=== PATIENT | female | born 1945 | race Caucasian/White ===

== ENCOUNTER → 2023-08-20 | Outpatient (CLI) | payer MEDICARE, SELFPAY ==
--- NOTE | 2023-08-20 15:41 | MRI_ITS ---
INDICATION: treated bone metastasis, eval for disease -- please compare to prior EXAMINATION: MRI - MR Spine Lumbar WO/W Contrast TECHNIQUE: Multiplanar and multisequence MR images of the lumbar spine. IV Contrast Dosage and Agent: None. COMPARISON: None. FINDINGS: VERTEBRAE: Scattered intraosseous hemangiomas are seen within the lumbar spine. However the L1 vertebral body demonstrates a lesion 1.36 cm AP with persistent high signal on fat saturation imaging and which demonstrates contrast enhancement. This could represent atypical intraosseous hemangioma or metabolically active lesion. Correlation advised. T10 demonstrates a moderate acute biconcave compression fracture. This demonstrates moderate marrow edema and contrast enhancement consistent with pathologic fracture. VERTEBRAL ALIGNMENT: No spondylolisthesis. There is preservation of the normal lumbar lordosis. CORD: Normal position and signal intensity of the conus medullaris. L1/L2: Normal disc height and morphology. Normal spinal canal, lateral recesses and neuroforamina. L2/L3: Mild disc bulging. L3/L4: Mild disc bulging. Mild bilateral facet arthropathy. L4/L5: Mild bilateral facet arthropathy L5/S1: Mild bilateral facet arthropathy. Tarlov''s cyst posterior to the S2 segment. MRI/Spine Lumbar W/WO Contrast IMPRESSION: L1 vertebral body atypical hemangioma versus metabolically active lesion. Correlation advised. Mild disc bulging L2-L4. Acute moderate biconcave compression fracture at T10 likely pathologic fracture from metastatic disease given contrast enhancement and edema. Electronically Signed: Flo Fry MD at 9:45 EDT ,
--- NOTE | 2023-08-20 15:41 | MRI_ITS ---
HISTORY: treated bone metastasis, eval for disease -- please compare to prior. TECHNIQUE: Multiplanar and multisequence MR images of the thoracic spine were obtained before and after the intravenous administration 8 mL Clariscan. 235 images. COMPARISON: PET-CT 08/07/2023, CT therapy planning 05/25/2023. FINDINGS: VERTEBRAE: Small STIR hyperintense lesions with mild enhancement in the T3, T4, and T9 vertebral bodies without confluent hypointense T1 signal abnormality. Enhancing T1 signal abnormality in the T10 vertebral body with chronic moderate pathologic compression fracture. No significant retropulsion into the spinal canal. Refer to MRI lumbar spine regarding L1 and L2 vertebral body lesions. ALIGNMENT: No significant anterior or posterior subluxation. SPINAL CANAL: Thoracic spinal cord within normal limits in signal and morphology without enhancing lesion. No epidural collection or enhancing intradural extramedullary mass. Pulsation artifact noted. INTERVERTEBRAL DISCS: No significant posterior disc protrusion, central canal stenosis, or foraminal narrowing. SOFT TISSUES: No paraspinal fluid collection. 3 cm long right thyroid cyst again seen. MRI/Spine Thoracic W/WO Contrast IMPRESSION: Chronic pathologic compression fracture of T10 with an enhancing metastatic lesion. Small regions of enhancement in the T3, T4, and T9 vertebral bodies without FDG avidity on recent PET-CT, likely benign lesions or treated metastases. Right thyroid cyst. Electronically Signed: Carmenza Carnes MD at 12:51 EDT ,
[2023-08-20 16:22] LABS: CREATININE FINGERSTICK < 0.9 mg/dL (0.55-1.02); EGFR FINGERSTICK > 60.0000 mL/min (>60)
== END | disposition home or self-care (01) ==
LOC: MRI 15:38
PROVIDERS: PCP Legal Medicine; Referring Provider Student in an Organized Health Care Education/Training Program; Visit Provider Student in an Organized Health Care Education/Training Program
DX: C79.51 Secondary malignant neoplasm of bone (principal)
CPT/HCPCS: 72157; 72158; A9575

== ENCOUNTER → 2023-10-16 | Outpatient (CLI) | payer MEDICARE, SELFPAY ==
--- NOTE | 2023-10-16 10:28 | NM_ITS ---
CLINICAL: 78-year-old female with history of breast carcinoma. WHOLE BODY 99m Tc MDP RADIONUCLIDE BONE SCINTIGRAPHY COMPARISON: None available FINDINGS: Following the intravenous administration of 25.6 mCi of 99m Tc MDP, whole body bone images reveal: 1. Enhanced radiotracer concentration is defined in the midline mandible, the 10th thoracic vertebra, the region of the eighth rib anterolaterally on the right. 2. Increased tracer uptake is noted in the right hand involving the third metacarpal phalangeal articulation, the patellofemoral compartment of the left knee, the acromioclavicular compartments of both shoulders, the lower cervical spine posteriorly on the right and left, the right elbow and hip. 3. The remaining skeletal structures are scintigraphically unremarkable with normal-appearing renal images and urinary bladder activity identified. Increased uptake is defined in the interorbital aspect of the skull consistent with periostitis. NM/Bone Scan Whole Body IMPRESSION: 1. The increase in tracer uptake noted in the midline mandible, the right lower anterolateral eighth rib, the 10th thoracic vertebra is commensurate with skeletal metastatic disease. 2. Degenerative arthrosis appears evident in the right hand, the left knee, the bilateral shoulders, the cervical spine, right elbow, right posterior superior acetabulum of the hip. Electronically Signed: Norman Rincon DO at 11:44 EST ,
== END | disposition home or self-care (01) ==
PROVIDERS: PCP Legal Medicine; Referring Provider Legal Medicine; Visit Provider Legal Medicine
DX: C50.912 Malignant neoplasm of unspecified site of left female breast (principal)
CPT/HCPCS: 78306; A9503